=== PATIENT | female | born 1970 | race African-American/Black ===

== ENCOUNTER 2019-07-30 16:02 | Inpatient (IN) | payer BC, OTHER ==
[2019-07-30] MEDS ORDERED: IBUPROFEN 400 MG TAB PO PRN (21:58)
[2019-07-30] MEDS ORDERED: DOCUSATE 100 MG CAP PO PRN (21:58)
[2019-07-30] MEDS ORDERED: ONDANSETRON 4 MG/2 ML VIAL IVP PRN (21:58)
[2019-07-30] MEDS ORDERED: NALOXONE 0.4 MG/ML 1 ML VIAL IV PRN (21:58)
[2019-07-30] MEDS ORDERED: SUMAtriptan SUCCINATE 50 MG TAB PO PRN (22:04)
--- NOTE | 2019-07-30 22:35 | XR ---
EXAMINATION TYPE: XR chest 1V DATE OF EXAM: 07/30/2019 COMPARISON: NONE HISTORY: Short of breath TECHNIQUE: FINDINGS: Portable upright view shows a small area of 3 cm infiltrate in the right upper lung field. There is no pleural effusion. There is poor inspiration. Exam is limited by patient's size. There is no heart failure. IMPRESSION: Small area of infiltrate right upper lobe. No heart failure. Normal heart.
--- NOTE | 2019-07-30 22:38 | P.HPIM ---
History of Present Illness H&P Date: 07/30/19 Chief Complaint: headache, dizziness , shortness of breath I was wearing full PPE during this encounter including N95 mask, face shield, double gloves, gown, and head cover. patient had a surgical mask on during my entire interview. i maintained 6 feet distance with the patient who verbalized understanding about these precautionary measures. except for during my physical exam where i had to be close to the patient. 49-year-old female with hypertension, currently uncontrolled as she has not been able to take her medications for few days, peripheral neuropathy Patient was a transfer from [facility] however I was unable to find the transfer papers for review. Physician to physician transfer was done before my shift. Currently I have no information available about any testing or what happened exactly at [facility] except from patient reports. Patient reports that she was at her baseline status of health about 3 weeks ago. She reports long history of migraine headaches and every couple years she with have a severe attack of headaches last attack was about 2 years ago. In about 3 weeks ago she started having similar episode started as next spasms and pain around her neck which started radiating to her head she was able to keep the pain under relative control with some Motrin as needed otherwise denies any associated fevers or chills denies any associated nausea or vomiting. 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 And then on Friday she had the prescription from her PCP she thinks it was sumatriptan and when she started that medicine she felt nauseated and dizzy. So since Friday she she is describing postural dizziness and some exertional dyspnea she admits that she is very concerned about the covert situation and feels anxious about it. She denies any known contact with positive covid patient's however she has been around hospital's, ER and in the community. She is doing her best to keep social distance and handwashing. So over the past 3 days she had decreased by mouth intake and decreased urine output and one episode of diarrhea otherwise denies any abdominal pain denies any nausea or vomiting denies any fever denies any chills denies any changes in her sense of smell or tasting. she dede any chest pain, or trouble breathing, denies any coughing, however she does report some exertional dyspnea with very mild exertion. she denies any muscle aches or abd pain. denies any recent traveling. Denies any focal neuro deficits he headaches continues, and due to fear of exposure to respiratory illness , she was avoiding hospitals until today . she could not take it anymore and decided to go back to the hospital. over there she was given 2 L of NS, and was found to have high blood pressure she admits that she has not been taking her medications for the past few days . she was also tested for COVID at [facility] today, as she was found to have patchy infilterates on her CXR. she did not receive any antibiotics. she is not aware if she was tested for influenza. again she denies any URI symptoms i have no transfer papers available for review at this point. Review of Systems Pertinent positives as noted in HPI. All other systems were reviewed and are negative Past Medical History Past Medical History: Cancer, GERD/Reflux, Hypertension, Pneumonia Additional Past Medical History / Comment(s): Colon CA @ 27 years (1995), colonoscopy 6 years ago History of Any Multi-Drug Resistant Organisms: None Reported Additional Past Surgical History / Comment(s): Right large intestine [id number] and gall bladder removed 1995 Past Anesthesia/Blood Transfusion Reactions: No Reported Reaction Past Psychological History: No Psychological Hx Reported Smoking Status: Never smoker Past Alcohol Use History: None Reported Past Drug Use History: None Reported - Past Family History Mother Family Medical History: Diabetes Mellitus, Hypertension Father Family Medical History: Hypertension, Renal Disease Medications and Allergies Home Medications Medication Instructions Recorded Confirmed Type Carvedilol [Coreg] 6.25 mg PO BID 07/30/19 07/30/19 History Gabapentin 600 mg PO TID 07/30/19 07/30/19 History Ibuprofen [Motrin] 800 mg PO Q8H 07/30/19 07/30/19 History Lisinopril 20 mg PO DAILY 07/30/19 07/30/19 History NIFEdipine XL [Procardia Xl] 30 mg PO DAILY 07/30/19 07/30/19 History SUMAtriptan SUCCINATE [Imitrex] 100 mg PO BID PRN 07/30/19 07/30/19 History Topiramate [Topamax] See Taper PO HS 07/30/19 07/30/19 History tiZANidine [Zanaflex] 4 mg PO BID@0800,1200 07/30/19 07/30/19 History tiZANidine [Zanaflex] 12 mg PO HS 07/30/19 07/30/19 History traMADol HCL 50 mg PO Q8H PRN 07/30/19 07/30/19 History Allergies Allergy/AdvReac Type Severity Reaction Status Date / Time No Known Allergies Allergy Unverified 07/30/19 20:26 Physical Exam Vitals: Vital Signs Temp Pulse Resp BP Pulse Ox 07/30/19 20:21 97.9 F 89 19 184/101 93 L Patient felt dizzy when I asked her to stand up and take a few steps. Her orthostatic vital signs are negative except for mild tachycardia. Patient was on room air during rest and while walking she was able to maintain oxygen saturation above 92% the whole time on room air. Constitutional: No acute distress, conversant, pleasant Eyes: Anicteric sclerae, moist conjunctiva, no lid-lag Pupils equal round reactive to light ENMT: NC/AT Oropharynx clear, no erythema, or exudates Neck: Supple, FROM, no masses, or JVD No carotid bruits No thyromegaly Lungs: Clear to auscultation throughout no wheezing no rhonchi nor rales Clear to percussion Normal respiratory effort, no accessory muscle use Cardiovascular: Heart regular in rate and rhythm, No murmurs, gallops, or rubs No peripheral edema Abdominal: Soft, obese limiting exam Nontender, no guarding, rebound or rigidity Abdomen moving with respiration Normoactive bowel sounds No hepatomegaly, No splenomegaly No palpable mass No abdominal wall hernia noted Skin: Normal temperature, tone, texture, turgor No induration No subcutaneous nodules No rash, lesions No ulcers Extremities: No digital cyanosis No clubbing Pedal pulses intact and symmetrical Radial pulses intact and symmetrical No calf tenderness Psychiatric: Alert and oriented to person, place and time Appropriate affect fair judgement Neuro Muscles Strength 5/5 in all 4 extremities Sensation to light touch grossly present throughout Cranial nerves II-XII grossly intact No focal sensory deficits Lymphatics: no palpable cervical or supraclavicular , or inguinal lymph nodes Thrombosis Risk Factor Assmnt - Choose All That Apply Any of the Below Risk Factors Present?: No Other Risk Factors: No Other congenital or acquired thrombophilia - If yes, enter type in comment: No Thrombosis Risk Factor Assessment Level: Very Low Risk Assessment and Plan Assessment: 49-year-old female with hypertension uncontrolled due to noncompliance with medications, peripheral neuropathy comes in as a transfer from [facility] where she presented with postural dizziness and headaches. She also reported component of anxiety and possible exertional dyspnea. She was tested for Covid at [facility] and then transferred to our facility for further care, physician to physician sign out was done before my shift and currently I have no transfer papers available for my immediate review. Anticipated length of stay more than 2 mid nights Plan: Malignant hypertension Dehydration postural dizziness Migraine headaches Suspected Covid 19 infection as testing was done at [facility] Peripheral neuropathy Plan Patient reports receiving 2 L normal saline at [facility] which made her feel better Continue with IV fluid hydration Orthostatic vital signs negative except for mild tachycardia Resume home medications for blood pressure control Monitor vital signs closely Monitor pulse ox every 2 hours currently maintaining oxygen saturation above 92% on room air while resting and ambulating Resume home medications for peripheral neuropathy and muscle spasms Symptomatic control of headache and nausea Check full set of initial labs, including CBC, CMP, PT/INR, d-dimer, troponin, CK-MB , LDH, ferritin, procalcitonin, lactic acid, CRP Check chest x-ray, as patient reported patchy infiltrates from x-rays done at [facility] Contact and droplet precautions for possible Covid Check EKG for baseline evaluation and QTc interval CODE STATUS: Full code DVT prophylaxis: Heparin subcu 3 times a day Discussed with: Patient, ER, RN Anticipated length of stay more than [address]: Home A total of 60 minutes was spent on the care of this complex patient more than 50% of the time was spent in counseling and care coordination.
[2019-07-30 23:30] LABS: Albumin 3.9 g/dL (3.5-5.0); Calcium 8.8 mg/dL (8.4-10.2); Magnesium 2.1 mg/dL (1.6-2.3); Phosphorus 3.1 mg/dL (2.5-4.5); Potassium 3.7 mmol/L (3.5-5.1); Total Protein 7.8 g/dL (6.3-8.2)
[2019-07-30 23:31] LABS: Basophils # (A) 0.1 k/uL (0-0.2); Basophils % (A) 0 %; Eosinophils # (A) 0.1 k/uL (0-0.7); Eosinophils % (A) 1 %; HCT 41.4 % (34.0-46.0); HGB 13.6 gm/dL (11.4-16.0); Lymphocytes # (A) 2.8 k/uL (1.0-4.8); Lymphocytes % (A) 24 %; MCH 28.7 pg (25.0-35.0); MCV 86.9 fL (80.0-100.0); Mean Platelet Volume 9.7; Monocytes # (A) 0.8 k/uL (0-1.0); Monocytes % (A) 7 %; Neutrophils # (A) 7.4 k/uL (1.3-7.7); Neutrophils % (A) 64 %; Platelet Count 287 k/uL (150-450); RBC 4.76 m/uL (3.80-5.40); RDW 13.4 % (11.5-15.5); WBC 11.6 k/uL (3.8-10.6)
[2019-07-30 23:32] LABS: D-Dimer 1.62 mg/L FEU (<0.60); Prothrombin Time 10.3 sec (9.0-12.0)
[2019-07-30 23:41] LABS: C Reactive Protein 129.6 mg/L (<10.0)
[2019-07-30] MEDS: MELATONIN 3 MG TABLET PO PRN (23:55)
[2019-07-30] MEDS: CARVEDILOL 6.25 MG TAB PO SCH (23:56)
[2019-07-30] MEDS: LISINOPRIL 20 MG TAB PO SCH (23:56)
[2019-07-30] MEDS: SODIUM CHLORIDE 0.9% 1,000 ML IV SCH (23:57)
[2019-07-30] MEDS: NIFEdipine XL 30 MG TAB.ER.24 PO SCH (23:57)
[2019-07-30] MEDS: ALPRAZolam 0.25 MG TAB PO PRN (23:57)
[2019-07-30] MEDS: GABAPENTIN 300 MG CAP PO SCH (23:57)
[2019-07-31] MEDS: tiZANidine 4 MG TAB PO SCH ×4 (01:06→21:35)
[2019-07-31] MEDS: HEPARIN SODIUM,PORCINE 5,000 UNIT/ML 1 ML VIAL SQ SCH ×4 (01:16→23:42)
[2019-07-31] MEDS: SODIUM CHLORIDE 0.9% 1,000 ML IV SCH ×2 (07:24→12:40)
[2019-07-31 07:42] LABS: Glucose,Whole Blood 128 mg/dL (75-99)
[2019-07-31] MEDS: LISINOPRIL 20 MG TAB PO SCH (07:59)
[2019-07-31] MEDS: NIFEdipine XL 30 MG TAB.ER.24 PO SCH (07:59)
[2019-07-31] MEDS: CARVEDILOL 6.25 MG TAB PO SCH ×2 (07:59→16:19)
[2019-07-31] MEDS: GABAPENTIN 300 MG CAP PO SCH ×3 (07:59→21:35)
[2019-07-31] MEDS: ALPRAZolam 0.25 MG TAB PO PRN ×2 (08:19→21:36)
[2019-07-31 10:38] LABS: Ferritin 225.3 ng/mL (10.0-291.0)
[2019-07-31] MEDS ORDERED: AZITHROMYCIN 500 MG TAB PO STA (10:44)
[2019-07-31 12:36] LABS: Basophils # (A) 0.1 k/uL (0-0.2); Basophils % (A) 1 %; Eosinophils # (A) 0.1 k/uL (0-0.7); Eosinophils % (A) 1 %; HCT 38.8 % (34.0-46.0); HGB 12.6 gm/dL (11.4-16.0); Lymphocytes # (A) 2.1 k/uL (1.0-4.8); Lymphocytes % (A) 20 %; MCH 28.7 pg (25.0-35.0); MCHC 32.4 g/dL (31.0-37.0); MCV 88.4 fL (80.0-100.0); Mean Platelet Volume 9.2; Monocytes # (A) 0.7 k/uL (0-1.0); Monocytes % (A) 7 %; Neutrophils # (A) 7.2 k/uL (1.3-7.7); Neutrophils % (A) 67 %; Platelet Count 269 k/uL (150-450); RBC 4.39 m/uL (3.80-5.40); RDW 13.6 % (11.5-15.5); WBC 10.6 k/uL (3.8-10.6)
--- NOTE | 2019-07-31 12:44 | XR ---
EXAMINATION TYPE: XR chest 1V portable DATE OF EXAM: 07/31/2019 HISTORY: Pneumonia. REFERENCE: Previous study dated 07/30/2019. FINDINGS: The study suffers from poor inspiration. The heart is upper limits of normal in size. There are patchy bilateral infiltrates. This is most obv ious in the left lung base. There is blunting of both CP angles and I could not exclude small effusio ns. IMPRESSION: 1. PATCHY BILATERAL INFILTRATES. 2. I COULD NOT EXCLUDE SMALL, BILATERAL EFFUSIONS.
[2019-07-31 12:45] LABS: Calcium 8.4 mg/dL (8.4-10.2); Potassium 4.1 mmol/L (3.5-5.1)
--- NOTE | 2019-07-31 13:42 | ECHOF ---
Referral Reason:per Dr QUINTERO MEASUREMENTS -------- HEIGHT: 154.9 cm WEIGHT: 161.9 kg BP: RVIDd: 2.7 cm (< 3.3) IVSd: 1.1 cm (0.6 - 1.1) LVIDd: 4.5 cm (3.9 - 5.3) LVPWd: 1.4 cm (0.6 - 1.1) IVSs: 2.1 cm LVIDs: 1.9 cm LVPWs: 2.2 cm LAESV Index (A-L): 35.51 ml/m Ao Diam: 3.1 cm (2.0 - 3.7) AV Cusp: 2.2 cm (1.5 - 2.6) LA Diam: 4.2 cm (2.7 - 3.8) MV EXCURSION: 14.924 mm (> 18.000) MV EF SLOPE: 107 mm/s (70 - 150) EPSS: 0.6 cm MV E Rufino: 1.10 m/s MV DecT: 272 ms MV A Rufino: 0.64 m/s MV E/A Ratio: 1.72 RAP: 5.00 mmHg RVSP: 15.61 mmHg FINDINGS -------- Resting bradycardia (HR<60bpm). This was a technically adequate study. The left ventricular size is normal. There is mild concentric left ventricular hypertrophy. Overa ll left ventricular systolic function is normal with, an EF between 55 - 60 %. The right ventricle is normal in size. LA is moderately dilated 34-39 ml/m2 The right atrial size is normal. Dropout seen in the interatrial septum The aortic valve is trileaflet and appears structurally normal. The mitral valve is normal. Mild mitral regurgitation is present. The tricuspid valve appears structurally normal. Mild tricuspid regurgitation present. Right vent ricular systolic pressure is normal at < 35 mmHg. There is no pulmonic regurgitation present. The aortic root size is normal. IVC Not well visulized. There is no pericardial effusion. CONCLUSIONS -------- 1. Resting bradycardia (HR<60bpm). 2. This was a technically adequate study. 3. The left ventricular size is normal. 4. There is mild concentric left ventricular hypertrophy. 5. Overall left ventricular systolic function is normal with, an EF between 55 - 60 %. 6. The right ventricle is normal in size. 7. LA is moderately dilated 34-39 ml/m2 8. The right atrial size is normal. 9. Dropout seen in the interatrial septum 10. The aortic valve is trileaflet and appears structurally normal. 11. The mitral valve is normal. 12. Mild mitral regurgitation is present. 13. The tricuspid valve appears structurally normal. 14. Mild tricuspid regurgitation present. 15. Right ventricular systolic pressure is normal at < 35 mmHg. 16. There is no pulmonic regurgitation present. 17. The aortic root size is normal. 18. IVC Not well visulized. 19. There is no pericardial effusion. PRESSED OR BLOWN GLASS WORKER: Rohini Daniel RDCS
[2019-07-31] MEDS ORDERED: IPRATROPIUM-ALBUTEROL 3 ML NEB INHALATION PRN (14:12)
--- NOTE | 2019-07-31 14:19 | P.PN ---
Subjective Progress Note Date: 07/31/19 patient seen and examined at bedside was wearing full PPE, reports that her headache is much improved, currently on supplemental oxygen at 2 L. Reports history of migraines and was recently started on Imitrex having some dizziness and diarrhea secondary to the medication, Covid 19 testing pending from [facility]. Chest x-ray this morning showing patchy bilateral infiltrates could not exclude small bilateral pleural effusions. Patient desatting to 90-92% on room air. Reported negative orthostatic vital signs. Patient denies any significant shortness of breath. Leukocytosis has resolved and she remains afebrile Objective - Vital Signs Vital signs: Vital Signs Temp 97.7 F 07/31/19 11:18 Pulse 55 L 07/31/19 11:18 Resp 17 07/31/19 11:18 BP 125/83 07/31/19 11:18 Pulse Ox 90 L 07/31/19 13:44 Intake & Output 07/30/19 07/31/19 07/31/19 18:59 06:59 18:59 Intake Total 700 1300 Balance 700 1300 Weight 162 kg Intake: Intake, IV Titration 240 Amount Sodium Chloride 0.9% 1, 240 000 ml @ 120 mls/hr IV . Q8H20M [facility] Rx#:[id number] Oral 700 1060 Other: Voiding Method Toilet # Voids 2 1 - Exam Constitutional: No acute distress, conversant, pleasant Eyes: Anicteric sclerae, moist conjunctiva, no lid-lag, PERRLA ENMT: NC/AT,Oropharynx clear, no erythema, exudates Neck:Supple, FROM, no masses, or JVD, No carotid bruits; No thyromegaly Lungs: Diminished in the bases with right sided basilar crackles, Cardiovascular: Heart regular in rate and rhythm, No murmurs, gallops, or rubs no peripheral edema Abdominal: Soft Nontender, nom distended, no guarding, no rebound or rigidity, Normoactive bowel sounds No hepatomegaly, No splenomegaly, No palpable mass No abdominal wall hernia noted Skin: Normal temperature, tone, texture, turgor, No induration No subcutaneous nodules, No rash, lesions, No ulcers Extremities:No digital cyanosis No clubbing, Pedal pulses intact and symmetrical Radial pulses intact and symmetrical Normal gait and station, No calf tenderness Psychiatric: Alert and oriented to person, place and time, Appropriate affect Intact judgement Neuro: Muscles Strength 5/5 in all 4 extremities, Sensation to light touch grossly present throughout, Cranial nerves II-XII grossly intact. No focal sensory deficits - Labs CBC & Chem 7: 07/31/19 12:21 07/31/19 12:21 Labs: Abnormal Lab Results - Last 24 Hours (Table) 07/30/19 07/30/19 07/30/19 Range/Units 22:29 22:29 22:29 WBC 11.6 H (3.8-10.6) k/uL D-Dimer 1.62 H (<0.60) mg/L FEU Creatinine 1.20 H (0.52-1.04) mg/dL Glucose 113 H (74-99) mg/dL POC Glucose (mg/dL) (75-99) mg/dL AST 54 H (14-36) U/L ALT 40 H (4-34) U/L Lactate Dehydrogenase 1113 H (313-618) U/L C-Reactive Protein 129.6 H (<10.0) mg/L Procalcitonin (0.02-0.09) ng/mL 07/30/19 07/31/19 07/31/19 Range/Units 22:29 07:39 12:21 WBC (3.8-10.6) k/uL D-Dimer (<0.60) mg/L FEU Creatinine 1.08 H (0.52-1.04) mg/dL Glucose 118 H (74-99) mg/dL POC Glucose (mg/dL) 128 H (75-99) mg/dL AST (14-36) U/L ALT (4-34) U/L Lactate Dehydrogenase (313-618) U/L C-Reactive Protein (<10.0) mg/L Procalcitonin 0.10 H (0.02-0.09) ng/mL Assessment and Plan Assessment: Pneumonia * Viral versus bacterial, influenza Coumadin 19 and calcitonin ordered, chest x- ray showing bilateral infiltrates unable to exclude pleural effusions likely limited by body habitus will order chest ultrasound * Initiated breathing treatments along with antibiotic with azithromycin * Suspected Covid 19 infection as testing was done at [facility] * Echocardiogram ordered indicating preserved LVEF without any significant valvular abnormalities Malignant hypertension * Resolved blood pressure much better controlled * Continue current regimen of Procardia and Coreg and lisinopril Dehydration * Now resolved * We'll discontinue IV fluids as patient is eating and drinking postural dizziness Migraine headaches * Continue prophylactic and abortive therapy with Topamax and Imitrex respectively Peripheral neuropathy * Continue Neurontin Disposition * Continue to monitor follow-up test results * We'll also consult ID for further recommendations
--- NOTE | 2019-07-31 15:27 | US ---
EXAMINATION TYPE: US chest DATE OF EXAM: 07/31/2019 COMPARISON: x-ray earlier today. CLINICAL HISTORY: rule out pleural effusion. TECHNIQUE: Targeted ultrasound of the posterior lower bilateral hemithoraces EXAM MEASUREMENTS: Right Pleural Effusion pocket size: not seen Left Pleural Effusion pocket size: 2.3 cm Left skin surface to fluid distance: 6.1 cm Right side not marked for possible thoracentesis outside the dept. Left side not marked for possible thoracentesis outside the dept. Pulmonologists are able to review the images in the patient?s EMR. 4 images saved show tiny left pleural effusion and no significant right pleural effusion which correl ates with chest x-ray. Large body habitus noted. IMPRESSIONS: As above.
[2019-07-31] MEDS: IPRATROPIUM-ALBUTEROL 3 ML NEB INHALATION SCH ×2 (15:29→18:50)
[2019-07-31] MEDS ORDERED: BENZOCAINE/MENTHOL LOZENG 1 EACH LOZENGE MUCOUS MEM PRN (21:21)
[2019-07-31] MEDS: MELATONIN 3 MG TABLET PO PRN (21:35)
[2019-07-31] MEDS: TOPIRAMATE 25 MG TAB PO SCH ×2 (21:36)
[2019-07-31] MEDS: ALBUTEROL INHALER 60 PUFF/8 GM INHALER (BULK) INHALATION SCH (22:25)
--- NOTE | 2019-08-01 00:38 | P.CONS ---
History of Present Illness - Reason for Consult Consult date: 07/31/19 covid19 infection Requesting physician: Darius Mckeon - Chief Complaint dizziness and shortness of breath x few days - History of Present Illness Patient is a 49-year-old -[place] female who apparently presented to the [facility] for evaluation of dizziness and shortness of breath in this patient apparently recently has been started on medication for her migraine headache patient also complaining of decreased oral intake and not feeling well patient denies having any chest pain denies significant cough or sputum production and no body aches did have an episode of diarrhea but no vomiting and no high-grade fever with the symptom the patient was evaluated outside facility with the patient did have a chest x-ray which shows patchy infiltrate patient subsequently has been transferred to [facility] for further management last night patient did have chest x-ray shows a small area of infiltrate right upper lobe no heart failure normal heart patient has been afebrile however on labs she was noticed to have mild elevated white 0.6 influenza PCR was negative patient did have an elevated procalcitonin 0.10 lactic acid has been normal however lactic dehydrogenase is elevated ferritin is normal CRP 129 with concern for possible COVID-19 infectious was consulted for management 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 Review of Systems Positive point has been mentioned in HPI rest of the systems are negative Past Medical History Past Medical History: Cancer, GERD/Reflux, Hypertension, Pneumonia Additional Past Medical History / Comment(s): Colon CA @ 27 years (1995), colonoscopy 6 years ago History of Any Multi-Drug Resistant Organisms: None Reported Additional Past Surgical History / Comment(s): Right large intestine [id number] and gall bladder removed 1995 Past Anesthesia/Blood Transfusion Reactions: No Reported Reaction Past Psychological History: No Psychological Hx Reported Smoking Status: Never smoker Past Alcohol Use History: None Reported Past Drug Use History: None Reported - Past Family History Mother Family Medical History: Diabetes Mellitus, Hypertension Father Family Medical History: Hypertension, Renal Disease Medications and Allergies Home Medications Medication Instructions Recorded Confirmed Type Carvedilol [Coreg] 6.25 mg PO BID 07/30/19 07/30/19 History Gabapentin 600 mg PO TID 07/30/19 07/30/19 History Ibuprofen [Motrin] 800 mg PO Q8H 07/30/19 07/30/19 History Lisinopril 20 mg PO DAILY 07/30/19 07/30/19 History NIFEdipine XL [Procardia Xl] 30 mg PO DAILY 07/30/19 07/30/19 History SUMAtriptan SUCCINATE [Imitrex] 100 mg PO BID PRN 07/30/19 07/30/19 History Topiramate [Topamax] See Taper PO HS 07/30/19 07/30/19 History tiZANidine [Zanaflex] 4 mg PO BID@0800,1200 07/30/19 07/30/19 History tiZANidine [Zanaflex] 12 mg PO HS 07/30/19 07/30/19 History traMADol HCL 50 mg PO Q8H PRN 07/30/19 07/30/19 History Allergies Allergy/AdvReac Type Severity Reaction Status Date / Time No Known Allergies Allergy Unverified 07/30/19 20:26 Physical Exam Vitals: Vital Signs Temp Pulse Pulse Resp BP Pulse Ox 07/31/19 19:08 97.9 F 85 18 148/95 93 L 07/31/19 15:38 60 07/31/19 15:31 60 07/31/19 15:00 97.7 F 65 17 121/80 98 07/31/19 13:44 90 L 07/31/19 11:18 97.7 F 55 L 17 125/83 98 07/31/19 07:00 98.2 F 75 16 90/54 98 07/31/19 02:39 97.8 F 67 18 97/55 96 07/30/19 23:30 84 16 148/95 Intake and Output 07/31/19 07/31/19 07/31/19 06:59 14:59 22:59 Intake Total 700 1300 Balance 700 1300 Intake: Intake, IV Titration 240 Amount Sodium Chloride 0.9% 1, 240 000 ml @ 120 mls/hr IV . Q8H20M [facility] Rx#:[id number] Oral 700 1060 Other: Voiding Method Toilet # Voids 2 1 Weight 162 kg GENERAL DESCRIPTION: Middle-aged female lying in bed, no distress. No tachypnea or accessory muscle of respiration use. HEENT: Shows Pallor , no scleral icterus. Oral mucous membrane is dry. NECK: Trachea central, no thyromegaly. LUNGS: Unlabored breathing. Decreased intensity of breath sounds. No wheeze or crackle. HEART: S1, S2, regular rate and rhythm. ABDOMEN: Soft, no tenderness , guarding or rigidity EXTREMITIES: No edema of feet. SKIN: No rash, no masses palpable. NEUROLOGICAL: The patient is awake, alert, oriented x3, mood and affect normal. Results CBC & Chem 7: 07/31/19 12:21 07/31/19 12:21 Labs: Abnormal Lab Results - Last 24 Hours (Table) 07/30/19 07/30/19 07/30/19 Range/Units 22:29 22:29 22:29 WBC 11.6 H (3.8-10.6) k/uL D-Dimer 1.62 H (<0.60) mg/L FEU Creatinine 1.20 H (0.52-1.04) mg/dL Glucose 113 H (74-99) mg/dL POC Glucose (mg/dL) (75-99) mg/dL AST 54 H (14-36) U/L ALT 40 H (4-34) U/L Lactate Dehydrogenase 1113 H (313-618) U/L C-Reactive Protein 129.6 H (<10.0) mg/L Procalcitonin (0.02-0.09) ng/mL 07/30/19 07/31/19 07/31/19 Range/Units 22:29 07:39 12:21 WBC (3.8-10.6) k/uL D-Dimer (<0.60) mg/L FEU Creatinine 1.08 H (0.52-1.04) mg/dL Glucose 118 H (74-99) mg/dL POC Glucose (mg/dL) 128 H (75-99) mg/dL AST (14-36) U/L ALT (4-34) U/L Lactate Dehydrogenase (313-618) U/L C-Reactive Protein (<10.0) mg/L Procalcitonin 0.10 H (0.02-0.09) ng/mL Assessment and Plan Assessment: patient presented hospital with dizziness increasing shortness of breath and this patient noticed to be slightly hypoxic with patchy infiltrate in 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 We will follow on clinical condition and cultures to further adjust medication if needed Thank you for this consultation we will follow the patient along with you Time with Patient: Greater than 30
[2019-08-01] MEDS: ACETAMINOPHEN TAB 325 MG TAB PO PRN (02:08)
[2019-08-01] MEDS: HYDROXYCHLOROQUINE SULFATE 200 MG TAB PO SCH ×2 (02:09→07:33)
[2019-08-01] MEDS: GABAPENTIN 300 MG CAP PO SCH ×3 (07:32→21:37)
[2019-08-01] MEDS: AZITHROMYCIN 250 MG TAB PO SCH (07:33)
[2019-08-01] MEDS: CARVEDILOL 6.25 MG TAB PO SCH ×2 (07:33→16:56)
[2019-08-01] MEDS: tiZANidine 4 MG TAB PO SCH ×3 (07:33→21:38)
[2019-08-01] MEDS: LISINOPRIL 20 MG TAB PO SCH (07:33)
[2019-08-01] MEDS: NIFEdipine XL 30 MG TAB.ER.24 PO SCH (07:33)
[2019-08-01] MEDS: HEPARIN SODIUM,PORCINE 5,000 UNIT/ML 1 ML VIAL SQ SCH ×3 (08:07→23:30)
[2019-08-01] MEDS: ALBUTEROL INHALER 60 PUFF/8 GM INHALER (BULK) INHALATION SCH ×4 (08:50→21:54)
--- NOTE | 2019-08-01 09:27 | P.PN ---
Subjective Progress Note Date: 08/01/19 Patient seen and examined at bedside I was wearing full PPE, patient reporting severe dyspnea when emulating without oxygen, sats dropping to 90% on room air. Patient continues to be afebrile without leukocytosis pro calcitonin 0.10, Chest x-ray from yesterday showing patchy bilateral infiltrates. Chest ultrasound showing a tiny left pleural effusion and no significant right pleural effusion. Objective - Vital Signs Vital signs: Vital Signs Temp 97.9 F 08/01/19 07:00 Pulse 75 08/01/19 07:00 Resp 18 08/01/19 07:00 BP 142/84 08/01/19 07:00 Pulse Ox 18 L 08/01/19 07:00 Intake & Output 07/31/19 08/01/19 08/01/19 18:59 06:59 18:59 Intake Total 1300 Balance 1300 Weight 162 kg Intake: Intake, IV Titration 240 Amount Sodium Chloride 0.9% 1, 240 000 ml @ 120 mls/hr IV . Q8H20M [facility] Rx#:[id number] Oral 1060 Other: Voiding Method Toilet Toilet # Voids 1 - Exam Constitutional: No acute distress, conversant, pleasant Eyes: Anicteric sclerae, moist conjunctiva, no lid-lag, PERRLA ENMT: NC/AT,Oropharynx clear, no erythema, exudates Neck:Supple, FROM, no masses, or JVD, No carotid bruits; No thyromegaly Lungs: Diminished in the bases with right sided basilar crackles, Cardiovascular: Heart regular in rate and rhythm, No murmurs, gallops, or rubs no peripheral edema Abdominal: Soft Nontender, nom distended, no guarding, no rebound or rigidity, Normoactive bowel sounds No hepatomegaly, No splenomegaly, No palpable mass No abdominal wall hernia noted Skin: Normal temperature, tone, texture, turgor, No induration No subcutaneous nodules, No rash, lesions, No ulcers Extremities:No digital cyanosis No clubbing, Pedal pulses intact and symmetrical Radial pulses intact and symmetrical Normal gait and station, No calf tenderness Psychiatric: Alert and oriented to person, place and time, Appropriate affect Intact judgement Neuro: Muscles Strength 5/5 in all 4 extremities, Sensation to light touch grossly present throughout, Cranial nerves II-XII grossly intact. No focal sensory deficits - Labs CBC & Chem 7: 07/31/19 12:21 07/31/19 12:21 Labs: Abnormal Lab Results - Last 24 Hours (Table) 07/30/19 07/31/19 08/01/19 Range/Units 22:29 12:21 06:49 D-Dimer 2.87 H (<0.60) mg/L FEU Creatinine 1.08 H (0.52-1.04) mg/dL Glucose 118 H (74-99) mg/dL Lactate Dehydrogenase (313-618) U/L Procalcitonin 0.10 H (0.02-0.09) ng/mL 08/01/19 Range/Units 06:49 D-Dimer (<0.60) mg/L FEU Creatinine (0.52-1.04) mg/dL Glucose (74-99) mg/dL Lactate Dehydrogenase 761 H (313-618) U/L Procalcitonin (0.02-0.09) ng/mL Microbiology - Last 24 Hours (Table) 07/30/19 22:29 Blood Culture - Preliminary Blood No Growth after 24 hours Assessment and Plan Assessment: Pneumonia * Viral versus bacterial, influenza Coumadin 19 and calcitonin ordered, chest x- ray showing bilateral infiltrates unable to exclude pleural effusions likely limited by body habitus will order chest ultrasound * Initiated breathing treatments along with antibiotic with azithromycin * Suspected Covid 19 infection as testing was done at [facility] - initiated on hydroxychloroquine by ID * Echocardiogram ordered indicating preserved LVEF without any significant valvular abnormalities Dyspnea * Secondary to pneumonia viral versus bacterial * Continue supplemental oxygen currently not able to qualify for oxygen as she desats to only 90% Malignant hypertension * Resolved blood pressure much better controlled * Continue current regimen of Procardia and Coreg and lisinopril * Echocardiogram showing preserved LVEF of 55-60% without any significant valvular abnormalities Dehydration * Now resolved * We'll discontinue IV fluids as patient is eating and drinking postural dizziness Migraine headaches * Continue prophylactic and abortive therapy with Topamax and Imitrex respe ctively Peripheral neuropathy * Continue Neurontin Disposition * Continue to monitor follow-up test results * Appreciate ID recommendations * Anticipated discharge in 24 hours
[2019-08-01] MEDS: TOPIRAMATE 25 MG TAB PO SCH (21:38)
--- NOTE | 2019-08-02 06:05 | PN ---
PROGRESS NOTE DATE OF SERVICE: 08/01/2019 REASON FOR FOLLOWUP: Acute COVID-19 pneumonia. INTERVAL HISTORY: The patient is afebrile. The patient is breathing slightly comfortably. Denies having any chest pain. Minimal cough. No nausea, no vomiting. No abdominal pain. No diarrhea. PHYSICAL EXAMINATION: Blood pressure 153/84 with a pulse of 74, temperature is 98.4. She is 98% on 1 L nasal cannula. General description is a middle-aged female lying in bed in no distress. RESPIRATORY SYSTEM: Unlabored breathing, decreased intensity of breath sounds. No wheeze. HEART: S1, S2. Regular rate and rhythm. ABDOMEN: Soft, no tenderness. LABS: Hemoglobin is 12.6, white count 10.6, BUN of 11, creatinine 1.08. D-dimer is 2.87. LDH was 1113, down to 761. DIAGNOSTIC IMPRESSION AND PLAN: Patient with acute COVID-19 pneumonia. Patient has clinically responded to the Plaquenil and Zithromax to continue and monitor clinical course closely. MMODL / IJN: [id number] /
[2019-08-02] MEDS: HYDROXYCHLOROQUINE SULFATE 200 MG TAB PO SCH (07:23)
[2019-08-02] MEDS: GABAPENTIN 300 MG CAP PO SCH ×3 (07:23→21:08)
[2019-08-02] MEDS: LISINOPRIL 20 MG TAB PO SCH (07:23)
[2019-08-02] MEDS: AZITHROMYCIN 250 MG TAB PO SCH (07:23)
[2019-08-02] MEDS: tiZANidine 4 MG TAB PO SCH ×3 (07:24→21:09)
[2019-08-02] MEDS: CARVEDILOL 6.25 MG TAB PO SCH ×2 (07:24→16:30)
[2019-08-02] MEDS: NIFEdipine XL 30 MG TAB.ER.24 PO SCH (07:24)
[2019-08-02] MEDS: HEPARIN SODIUM,PORCINE 5,000 UNIT/ML 1 ML VIAL SQ SCH ×2 (07:27→16:38)
[2019-08-02] MEDS: ALBUTEROL INHALER 60 PUFF/8 GM INHALER (BULK) INHALATION SCH ×4 (07:30→20:59)
[2019-08-02 08:25] LABS: Basophils % (A) 0 %; Eosinophils # (A) 0.2 k/uL (0-0.7); Eosinophils % (A) 2 %; HCT 38.3 % (34.0-46.0); HGB 12.1 gm/dL (11.4-16.0); Lymphocytes # (A) 2.5 k/uL (1.0-4.8); Lymphocytes % (A) 20 %; MCH 28.3 pg (25.0-35.0); MCHC 31.7 g/dL (31.0-37.0); MCV 89.3 fL (80.0-100.0); Mean Platelet Volume 8.5; Monocytes # (A) 0.7 k/uL (0-1.0); Monocytes % (A) 6 %; Neutrophils # (A) 8.8 k/uL (1.3-7.7); Neutrophils % (A) 71 %; Platelet Count 284 k/uL (150-450); RBC 4.29 m/uL (3.80-5.40); RDW 13.7 % (11.5-15.5); WBC 12.5 k/uL (3.8-10.6)
[2019-08-02 08:35] LABS: Albumin 3.7 g/dL (3.5-5.0); Calcium 8.9 mg/dL (8.4-10.2); Potassium 3.9 mmol/L (3.5-5.1); Total Bilirubin 0.5 mg/dL (0.2-1.3); Total Protein 7.3 g/dL (6.3-8.2)
[2019-08-02] MEDS: ACETAMINOPHEN TAB 325 MG TAB PO PRN ×2 (10:05→21:09)
[2019-08-02 10:24] LABS: Ferritin 180.4 ng/mL (10.0-291.0)
--- NOTE | 2019-08-02 11:21 | P.PN ---
Subjective Progress Note Date: 08/02/19 Principal diagnosis: headaches Patient is a 49-year-old -[place] female with a past medical history of hypertension, colon cancer, pneumonia, and GERD who presented as a transfer from secondary to hypertensive urgency and headache. She had been having headaches for approximately 3 weeks and had multiple trips to the ER and her primary care physician. She was started on sumatriptan and was felt nauseous and dizzy afterwards. She was also noting some exertional dyspnea. On arrival here her blood pressure was significantly elevated at 184/101. Her laboratory analysis showed an elevated white blood cell count 11.6, d-dimer 1.62, creatinine 1.2, pro calcitonin 0.1, CRP 129, LDH 1113, and mildly elevated AST and ALT at 54 and 40 respectively. They had sent Covid screening at [place]. Chest x-ray here showed an area of infiltrate in the right upper lobe. She was given IV fluid hydration and symptomatic control of her nausea and headache. Orthostatic vitals were positive with elevated heart rate on standing. Echocardiogram showed an ejection fraction of 55-60% with mild concentric LVH. Chest ultrasound demonstrated a left pleural effusion pocket sites of 2.3 cm. She was seen by infectious disease who recommended plaqunil with continuing droplet and contact precautions. Her headache and dizziness improved. She was able to get up and ambulate in the room. Her white blood cell count increased on 08/01. She is also having marginal hypoxemia at 90% after walking. D-dimer continued to go up. Patient has a brother who was at home with her that is a high risk patient and he has cerebral palsy with end-stage renal disease and chronic obstructive pulmonary disease. She is very concerned about being discharged and exposing hi m. Patient seen and examined at bedside. She is having some new right-sided rib pain. She still reports dyspnea on exertion. She states that her pulse ox drops to 90 when she returns to the bed. She denies any nausea, vomiting, or diarrhea. No myalgias. Objective - Vital Signs Vital signs: Vital Signs Temp 98.3 F 08/02/19 07:00 Pulse 85 08/02/19 07:00 Resp 17 08/02/19 07:00 BP 185/99 08/02/19 07:00 Pulse Ox 97 08/02/19 07:00 Intake & Output 08/01/19 08/02/19 08/02/19 18:59 06:59 18:59 Intake Total 1060 Balance 1060 Intake: Oral 1060 Other: Voiding Method Toilet Toilet # Voids 3 2 # Bowel Movements 1 1 - Exam General: non toxic, no distress, appears at stated age, obese Derm: warm, dry Head: atraumatic, normocephalic, symmetric Eyes: EOMI, no lid lag, anicteric sclera Mouth: no lip lesion, mucus membranes moist Cardiovascular: S1S2 reg, no murmur, positive posterior tibial pulse bilateral, Lungs: Decreased breath sounds bilateral, no rhonchi, no rales , no accessory muscle use Abdominal: soft, nontender to palpation, no guarding, no appreciable organomegaly Ext: no gross muscle atrophy, no edema, no contractures Neuro: CN II-XI grossly intact, no focal neuro deficits Psych: Alert, oriented, appropriate affect - Labs CBC & Chem 7: 08/02/19 08:06 08/02/19 08:06 Labs: Abnormal Lab Results - Last 24 Hours (Table) 08/02/19 08/02/19 Range/Units 08:06 08:06 WBC 12.5 H (3.8-10.6) k/uL Neutrophils # 8.8 H (1.3-7.7) k/uL Glucose 119 H (74-99) mg/dL AST 39 H (14-36) U/L ALT 35 H (4-34) U/L Microbiology - Last 24 Hours (Table) 07/30/19 22:29 Blood Culture - Preliminary Blood No Growth after 48 hours Assessment and Plan Assessment: COVID-19 with viral pneumonia - dyspnea increasing with increasing leukocytosis - D-dimer > 1 and increasing - Repeat chest x-ray today -ID recommendations appreciated: Currently on Zithromax and hydroxychloroquine -Continue with supportive care -As needed albuterol HTN with urgency on arrival -Blood pressures are labile -Coreg -Nifedipine - Lisinopril -Follow blood pressures Headache -Continue supportive care Morbid obesity with BMI 48.4 -Outpatient structured weight loss Peripheral neuropathy -Neurontin NEETA, resolved Dizziness secondary to orthostatic changes with positive tachycardia, resolved hopefully home in AM if WBC and oxygen status improving. D/W patient discharge instructions for isolation. DVT prophylaxis: Heparin Discussed with: Patient Anticipated discharge: 1-[address]: home A total of 35 minutes was spent on the care of this complex patient more than 50% of the time was spent in counseling and care coordination.
--- NOTE | 2019-08-02 11:56 | XR ---
EXAMINATION TYPE: XR chest 1V portable DATE OF EXAM: 08/02/2019 COMPARISON: The HISTORY: Follow-up infiltrates TECHNIQUE: Single frontal view of the chest is obtained. FINDINGS: Scattered airspace infiltrates persist although appear to be slightly improved relative to the prior study. Correlate clinically. The cardiac silhouette size is within normal limits. The osseous structures are intact. IMPRESSION: 1. Scattered airspace infiltrates persist although appear to be slightly improved relative to the pr ior study. Correlate clinically.
[2019-08-02 12:10] LABS: Basophils % (A) 0 %; Eosinophils # (A) 0.2 k/uL (0-0.7); Eosinophils % (A) 1 %; HCT 36.4 % (34.0-46.0); HGB 11.8 gm/dL (11.4-16.0); Lymphocytes # (A) 2.2 k/uL (1.0-4.8); Lymphocytes % (A) 16 %; MCH 28.7 pg (25.0-35.0); MCHC 32.3 g/dL (31.0-37.0); Mean Platelet Volume 9.2; Monocytes % (A) 7 %; Neutrophils # (A) 10.1 k/uL (1.3-7.7); Neutrophils % (A) 73 %; Platelet Count 274 k/uL (150-450); RDW 13.8 % (11.5-15.5); WBC 13.8 k/uL (3.8-10.6)
[2019-08-02] MEDS: ZINC SULFATE 220 MG CAP PO SCH (16:35)
[2019-08-02] MEDS ORDERED: cloNIDine HCL 0.2 MG TAB PO PRN (19:53)
[2019-08-02] MEDS: TOPIRAMATE 25 MG TAB PO SCH (21:09)
--- NOTE | 2019-08-02 23:14 | PN ---
PROGRESS NOTE DATE OF SERVICE: 08/02/2019 REASON FOR FOLLOW UP: Acute Covid-19 pneumonia. INTERVAL HISTORY: The patient is currently afebrile. The patient has been breathing comfortably. Still has minimal shortness of breath on exertion. No chest pain. Occasional cough. No nausea, no vomiting. No abdominal pain. No diarrhea. PHYSICAL EXAMINATION: Blood pressure 171/91 with a pulse of 74, temperature 98.1. She is 98% on 1 L nasal cannula. General description is a middle-aged female lying in bed in no distress. Respiratory system: Unlabored breathing, decreased intensive breath sounds. No wheeze. Heart S1, S2. Regular rate and rhythm. ABDOMEN: Soft, no tenderness. LABS: Hemoglobin 11.8, white count 13.8. BUN of 9, creatinine 1.04. Chest x-ray this morning: Scattered airspace infiltrate persists although appeared to be slightly improved compared to the prior study. DIAGNOSTIC IMPRESSION AND PLAN: Patient with acute Covid-19, the patient seemed to have shown clinical improvement as well as radiological improvement. She has been on Zithromax and Plaquenil, which should continue to finish a 5 day course of therapy. Monitor clinical course closely. Continue supportive care. MMODL / IJN: [id number] /
[2019-08-03] MEDS: HEPARIN SODIUM,PORCINE 5,000 UNIT/ML 1 ML VIAL SQ SCH ×2 (00:06→08:36)
[2019-08-03 06:11] LABS: Albumin 3.9 g/dL (3.5-5.0); Calcium 9.3 mg/dL (8.4-10.2); Potassium 4.3 mmol/L (3.5-5.1); Total Bilirubin 0.4 mg/dL (0.2-1.3); Total Protein 7.6 g/dL (6.3-8.2)
[2019-08-03] MEDS: ZINC SULFATE 220 MG CAP PO SCH (07:14)
[2019-08-03] MEDS: AZITHROMYCIN 250 MG TAB PO SCH (07:14)
[2019-08-03] MEDS: NIFEdipine XL 30 MG TAB.ER.24 PO SCH (07:14)
[2019-08-03 07:15] VITALS: RESP 18; TEMP 98.2
[2019-08-03] MEDS: LISINOPRIL 20 MG TAB PO SCH (07:15)
[2019-08-03] MEDS: CARVEDILOL 6.25 MG TAB PO SCH (07:15)
[2019-08-03] MEDS: HYDROXYCHLOROQUINE SULFATE 200 MG TAB PO SCH (07:15)
[2019-08-03] MEDS: tiZANidine 4 MG TAB PO SCH ×2 (07:15→12:21)
[2019-08-03] MEDS: GABAPENTIN 300 MG CAP PO SCH (07:15)
[2019-08-03] MEDS: ALBUTEROL INHALER 60 PUFF/8 GM INHALER (BULK) INHALATION SCH ×2 (07:58→11:12)
[2019-08-03] MEDS ORDERED: CARVEDILOL 6.25 MG TAB PO STA (08:17)
[2019-08-03] MEDS ORDERED: CARVEDILOL 12.5 MG TAB PO SCH ×2 (08:30→17:30)
[2019-08-03 08:33] LABS: Basophils % (A) 0 %; Eosinophils # (A) 0.2 k/uL (0-0.7); Eosinophils % (A) 1 %; HCT 38.7 % (34.0-46.0); HGB 12.3 gm/dL (11.4-16.0); Lymphocytes # (A) 2.7 k/uL (1.0-4.8); Lymphocytes % (A) 20 %; MCH 28.8 pg (25.0-35.0); MCHC 31.8 g/dL (31.0-37.0); MCV 90.5 fL (80.0-100.0); Mean Platelet Volume 9.1; Monocytes # (A) 0.8 k/uL (0-1.0); Monocytes % (A) 6 %; Neutrophils # (A) 9.6 k/uL (1.3-7.7); Neutrophils % (A) 71 %; Platelet Count 291 k/uL (150-450); RBC 4.28 m/uL (3.80-5.40); RDW 13.7 % (11.5-15.5); WBC 13.6 k/uL (3.8-10.6)
[2019-08-03] MEDS: ACETAMINOPHEN TAB 325 MG TAB PO PRN (08:55)
[2019-08-03 09:53] VITALS: BP 134/82; PULSE 78
[2019-08-03 11:12] LABS: Ferritin 163.9 ng/mL (10.0-291.0)
--- NOTE | 2019-08-03 11:30 | P.DS ---
Providers Date of admission: 07/30/19 19:56 Expected date of discharge: 08/03/19 Attending physician: Rafael Carrillo DO Consults: 07/31/19 13:59 Consult Physician Routine Consulting Provider: Earl Bauer Consult Reason/Comments: rule out COVID, pneumonia Do you want consulting provider notified?: Yes Primary care physician: Danilo Cali Hospital Course: Discharge Diagnosis: Viral pneumonia due to COVID-19 + HTN with urgency on arrival Headache, intractable Morbid obesity Peripheral neuropathy NEETA Dizziness Hospital Course: Patient is a 49-year-old -[place] female with a past medical history of hypertension, colon cancer, pneumonia, and GERD who presented as a transfer from [facility] secondary to hypertensive urgency and headache. She had been having headaches for approximately 3 weeks and had multiple trips to the ER and her primary care physician. She was started on sumatriptan and was felt nauseous and dizzy afterwards. She was also noting some exertional dyspnea. On arrival here her blood pressure was significantly elevated at 184/101. Her laboratory analysis showed an elevated white blood cell count 11.6, d-dimer 1.62, creatinine 1.2, pro calcitonin 0.1, CRP 129, LDH 1113, and mildly elevated AST and ALT at 54 and 40 respectively. They had sent Covid screening at [place]. Chest x-ray here showed an area of infiltrate in the right upper lobe. She was given IV fluid hydration and symptomatic control of her nausea and headache. Orthostatic vitals were positive with elevated heart rate on standing. Echocardiogram showed an ejection fraction of 55-60% with mild concentric LVH. Chest ultrasound demonstrated a left pleural effusion pocket sites of 2.3 cm. She was seen by infectious disease who recommended plaqunil with continuing droplet and contact precautions. Her headache and dizziness improved. She was able to get up and ambulate in the room. Her white blood cell count increased on 08/01, repeat CXR showed improvement in infiltrated . She is also having marginal hypoxemia at 90% after walking. D-dimer started to stabilize, LDH downtrending. Pro calcitonin normal. Her white blood cell count stabilized on 08/03/2019. She was determined stable for discharge home. Patient seen and examined at bedside. She states that her shortness of breath is improving but not completely resolved. No nausea, vomiting, or diarrhea. No chest pain. We discussed extensively her Covid-19 instructions. Don't use Tizanidine while taking zithromax and hydroxychloroquine Vital signs reviewed and stable. General: non toxic, no distress, appears at stated age Derm: warm, dry Head: atraumatic, normocephalic, symmetric Eyes: EOMI, no lid lag, anicteric sclera Mouth: no lip lesion, mucus membranes moist Cardiovascular: S1S2 reg, no murmur, positive posterior tibial pulse bilateral, Lungs: CTA bilateral, no rhonchi, no rales , no accessory muscle use Abdominal: soft, nontender to palpation, no guarding, no appreciable organomegaly Ext: no gross muscle atrophy, no edema, no contractures Neuro: CN II-XI grossly intact, no focal neuro deficits Psych: Alert, oriented, appropriate affect A total of 35 minutes of time were spent preparing this complex discharge summary . Patient Condition at Discharge: Stable Plan - Discharge Summary Discharge Rx Participant: No New Discharge Prescriptions: New Carvedilol [Coreg*] 12.5 mg PO BID-W/MEALS #30 tab Zinc Sulfate [Orazinc] 220 mg PO DAILY cap Hydroxychloroquine Sulfate [Plaquenil] 200 mg PO BID #6 tab Albuterol Inhaler [Ventolin Hfa Inhaler] 2 puff INHALATION RT-QID PRN #1 inhaler PRN Reason: Shortness Of Breath Azithromycin [Zithromax] 250 mg PO DAILY #1 tab Continue Topiramate [Topamax] See Taper PO HS SUMAtriptan SUCCINATE [Imitrex] 100 mg PO BID PRN PRN Reason: Migraine Headache traMADol HCL 50 mg PO Q8H PRN PRN Reason: Pain NIFEdipine XL [Procardia XL] 30 mg PO DAILY Lisinopril 20 mg PO DAILY Gabapentin 600 mg PO TID tiZANidine [Zanaflex] 4 mg PO BID@0800,1200 tiZANidine [Zanaflex] 12 mg PO HS Discontinued Ibuprofen [Motrin] 800 mg PO Q8H Carvedilol [Coreg] 6.25 mg PO BID Discharge Medication List Gabapentin 600 mg PO TID 07/30/19 [History] Lisinopril 20 mg PO DAILY 07/30/19 [History] NIFEdipine XL [Procardia XL] 30 mg PO DAILY 07/30/19 [History] SUMAtriptan SUCCINATE [Imitrex] 100 mg PO BID PRN 07/30/19 [History] Topiramate [Topamax] See Taper PO HS 07/30/19 [History] tiZANidine [Zanaflex] 4 mg PO BID@0800,1200 07/30/19 [History] tiZANidine [Zanaflex] 12 mg PO HS 07/30/19 [History] traMADol HCL 50 mg PO Q8H PRN 07/30/19 [History] Albuterol Inhaler [Ventolin Hfa Inhaler] 2 puff INHALATION RT-QID PRN #1 inhaler 08/03/19 [Rx] Azithromycin [Zithromax] 250 mg PO DAILY #1 tab 08/03/19 [Rx] Carvedilol [Coreg*] 12.5 mg PO BID-W/MEALS #30 tab 08/03/19 [Rx] Hydroxychloroquine Sulfate [Plaquenil] 200 mg PO BID #6 tab 08/03/19 [Rx] Zinc Sulfate [Orazinc] 220 mg PO DAILY cap 08/03/19 [Rx] Activity/Diet/Wound Care/Special Instructions: Activity: as tolerated Diet: regular Special Instructions: Do not take Tizanidine while on zithromax and hydroxychloroquine Follow COVID discharge instructions take blood pressure once daily Discharge Disposition: HOME SELF-CARE
--- NOTE | 2019-08-03 14:58 | PN ---
PROGRESS NOTE DATE OF SERVICE: 08/03/2019 REASON FOR FOLLOWUP: Acute COVID-19 pneumonia. INTERVAL HISTORY: The patient is currently afebrile. The patient has been breathing more comfortably. The patient denies having any chest pain, shortness of breath. Occasional cough. No nausea, no vomiting. No abdominal pain, no diarrhea. PHYSICAL EXAMINATION: Blood pressure 134/82 with a pulse of 73, temperature 98.2, she is 99% on room on room air. General description is a middle-aged female up in the room, in no distress. RESPIRATORY SYSTEM: Unlabored breathing, decreased breath sounds at the base, no wheeze. HEART: S1, S2. Regular rate and rhythm. ABDOMEN: Soft, no tenderness. LABS: Hemoglobin is 12.8, white count of 13.6. BUN of 10, creatinine 1.02. LDH slightly decreased to . Blood culture has been negative. DIAGNOSTIC IMPRESSION AND PLAN: Patient with acute COVID-19 pneumonia. The patient seemed to have shown clinical improvement as well as radiological improvement. She will finish therapy with Plaquenil and monitor clinical course closely. Questions and concerns were answered. MMODL / IJN: [id number] /
== END 2019-08-03 13:47 | disposition home or self-care (01) | DRG 194 ==
LOC: 4SSUR 19:56
PROVIDERS: ADMIT Internal Medicine; ATTEND Internal Medicine
DX: J12.89 Other viral pneumonia (principal); N17.9 Acute kidney failure, unspecified; Z68.42 Body mass index [BMI] 45.0-49.9, adult; B97.29 Other coronavirus as the cause of diseases classified elsewhere; K21.9 Gastro-esophageal reflux disease without esophagitis; G43.909 Migraine, unspecified, not intractable, without status migrainosus; E66.01 Morbid (severe) obesity due to excess calories; E86.0 Dehydration; F41.9 Anxiety disorder, unspecified; G62.9 Polyneuropathy, unspecified; I16.0 Hypertensive urgency; Z87.01 Personal history of pneumonia (recurrent); Z85.038 Personal history of other malignant neoplasm of large intestine; Z83.3 Family history of diabetes mellitus; Z82.49 Family history of ischemic heart disease and other diseases of the circulatory system; Z91.14 Patient's other noncompliance with medication regimen; Z79.899 Other long term (current) drug therapy
CPT/HCPCS: 71045; 76604; 80048; 80053; 82308; 82550; 82728; 83605; 83615; 83735; 83880; 84100; 84145; 84484; 85025; 85379; 85610; 86140; 87040; 87502; 87634; 93005; 93306; 94640